=== PATIENT | female | born 1990 | race African-American/Black ===

== ENCOUNTER 2016-08-15 11:11 | Emergency (ER) | payer MEDICAID ==
[~2016-08-15] VITALS: Ht 165.1 cm; Wt 70.0 kg
[2016-08-15] MEDS ORDERED: KETOROLAC 60MG/2ML VIAL IM ONE (12:45)
[2016-08-15 13:22] VITALS: BP 119/73
== END 2016-08-15 13:23 | disposition home or self-care (01) ==
LOC: ER 12:36
DX: M54.2 Cervicalgia (principal); M54.5 Low back pain; R51 Headache; V43.52XA Car driver injured in collision with other type car in traffic accident, initial encounter; Y92.488 Other paved roadways as the place of occurrence of the external cause
CPT/HCPCS: 99282; J1885; Z7610

== ENCOUNTER 2018-06-24 00:09 | Emergency (ER) | payer MEDICAID ==
[~2018-06-24] VITALS: Ht 165.1 cm; Wt 72.9 kg
[2018-06-24 00:16] VITALS: BP 121/80
== END 2018-06-24 08:39 | disposition left against medical advice (07) ==
LOC: ER 00:09
DX: Z53.21 Procedure and treatment not carried out due to patient leaving prior to being seen by health care provider (principal)